=== PATIENT | male | born 1965 | race Caucasian/White ===

== ENCOUNTER 2017-01-23 14:25 | Inpatient (IN) | payer OTHER ==
[~2017-01-23] VITALS: Ht 180.3 cm; Wt 167.8 kg
--- NOTE | ~2017-01-23 | CT4 ---
[facility] A Service of [facility] & [facility] / [facility] RADIOLOGY TEXT RESULTS PATIENT: CATRACHITA JIM LOCATION: [facility] [id number] : [birth year] UNIT #: [id number] AGE: [address]: Mary Kate Johnson MD SEX: M ORDER DR: [id number] [address] [address] [id number] MR#: [id number] Acc #: [id number] NAME: CATRACHITA JIM : 1965 SEX: M STUDY DATE/TIME: 01/23/2017 15:33 UNIT: SED ROOM: STUDY DESCRIPTION: CT Abd and Pelv Wo Cont Attending Physician: Stu Solorzano M.D. Ordering Physician: Stu Solorzano M.D. Primary Care Physician: Omar Romo M.D. MEDICAL IMAGING REPORT This report is preliminary unless electronic signature is present. EXAM CT abdomen and pelvis without contrast HISTORY Left flank pain today. TECHNIQUE CT abdomen and pelvis was performed without contrast This CT exam was performed with one or more of the following radiation dose reduction techniques: automatic exposure control, adjustment of mA and/or kV according to patient size, and iterative reconstruction. FINDINGS CT abdomen: Left subcapsular perirenal hematoma measuring approximately 3 cm in maximal depth, and extending over a craniocaudal dimension of nearly 14 cm, with additional half superior, posterior and inferior perirenal blood on the left, extending to the level of the left hemidiaphragm and abutting the posterior margin of the spleen along its superior margin and extending into the left pelvis along the psoas muscle into its inferior margin. There is a lobulated probable perirenal hematoma along the posterior lower pole left kidney, with a likely associated subcapsular component. This measures close to 4 cm. There is a left adrenal myelolipoma measuring 1.3 cm. The liver, spleen, pancreas, right adrenal gland, and right kidney are unremarkable. No bowel dilatation. Normal appendix. Normal caliber abdominal aorta. CT pelvis: [id number] prostatic enlargement. Urinary bladder is normal. No free fluid. Moderately large left subcapsular renal hematoma measuring up to approximately 3 cm in depth with a lobulated subcapsular and perirenal hematoma component along the posterior margin of the lower pole left kidney measuring approximately 4 cm and additional more diffuse STS. [facility] A Service of [facility] & [facility] / [facility] RADIOLOGY TEXT RESULTS PATIENT: CATRACHITA JIM LOCATION: [facility] [id number] : [birth year] UNIT #: [id number] AGE: [address]: Mary Kate Johnson MD SEX: M ORDER DR: perirenal blood along the superior posterior and inferior left kidney extending from the left hemidiaphragm superiorly to the left upper pelvis inferiorly along anterior margin of the psoas muscle. Further characterization is limited without IV contrast. IMPRESSION 1. No urinary calculi or obstruction. 2. Left adrenal myelolipoma measures 1.3 cm. Dictated by... Luis Alcaraz M.D. THIS IS AN ELECTRONICALLY VERIFIED REPORT Luis Alcaraz M.D. at 01/23/2017 11:22 PM FELISA/jamari TD: 01/23/2017 18:00 JOB #: [id number] MEDICAL IMAGING REPORT Page 1 of 1
[~2017-01-23 14:25] MED LIST: ALAVERT10 MG PO; ALDACTONE25 MG PO; AMLODIPINE BESYL5 MG PO; CARVEDILOL25 MG PO; GLIPIZIDE10 MG PO; LISINOPRIL; LISINOPRIL20 MG PO; LORTAB 7.5-5001 TAB; METFORMIN PO; PHENERGAN25 MG PO
[2017-01-23 15:10] LABS: BASOPHIL# 0.1 X10e3 (0-0.3); BASOPHIL% 0.7 % (0-2.5); EOSINOPHIL# 0.1 X10e3 (0-0.7); EOSINOPHIL% 1.6 % (0.0-7.0); HEMATOCRIT 35.9 % (38.0-50.0); HEMOGLOBIN 12.5 gm/dL (13.0-16.0); LYMPHOCYTE# 0.4 X10e3 (1.0-3.5); LYMPHOCYTE% 4.7 % (17.0-45.0); MEAN CORPUSCULAR HEMOGLOBIN 34.2 PG (28-34); MEAN CORPUSCULAR HGB CONC 34.8 g/dL (30-36); MEAN PLATELET VOLUME 8.4 FL (6.5-11.5); MONOCYTE# 0.5 X10e3 (0-1.0); MONOCYTE% 6.2 % (3.0-12.0); NEUTROPHIL# 6.8 X10e3 (1.5-7.1); NEUTROPHIL% 86.8 % (40-75); PLATELET COUNT 229 X10e3 (140-420); RED BLOOD COUNT 3.66 X10e (3.90-5.60); RED CELL DISTRIBUTION WIDTH 13.7 % (11.0-15.5); WHITE BLOOD COUNT 7.8 X10e3 (4.0-10.5)
[2017-01-23 15:11] LABS: DIFF IND NO
[2017-01-23 15:18] LABS: CALCIUM SERUM 9.2 mg/dL (8.4-10.2); CREATININE SERUM 1.6 mg/dL (0.6-1.4); GLOM FILT RATE Estimated 49.5 mL/min (>60); POTASSIUM 3.5 mmol/L (3.5-5.1)
[2017-01-23 16:46] LABS: INR 1.1; PROTHROMBIN TIME (PATIENT) 11.9 SECONDS (9.5-12.4)
[2017-01-23 16:53] LABS: PARTIAL THROMBOPLASTIN TIME 28.8 SECONDS (25.6-38.1)
[2017-01-23 18:09] LABS: URINE SOURCE CLEAN CATCH
[2017-01-23 18:10] LABS: URINE APPEARANCE CLEAR; URINE BILIRUBIN NEG (NEG); URINE BLOOD 1+ (NEG); URINE COLOR YELLOW; URINE GLUCOSE NEG (NORM); URINE KETONE 1+ (NEG); URINE LEUKOCYTE ESTERASE NEG (NEG); URINE NITRATE NEG (NEG); URINE PROTEIN 2+ (NEG); URINE UROBILINOGEN 0.2 MG/DL (NORM)
[2017-01-23 18:17] LABS: CULTURE INDICATED? NO; MICRO INDICATED? YES; URINE BACTERIA NEG (NEG); URINE WBC 0-2 /[HPF] (0-5)
[2017-01-23] MEDS ORDERED: ATORVASTATIN CA10 MG PO (22:49)
[2017-01-23] MEDS ORDERED: ZYRTEC10 M1 PO (22:51)
[2017-01-23] MEDS ORDERED: 24 HOUR ALLER15.8 ML (22:57)
[2017-01-23] MEDS ORDERED: HYDRALAZINE HCL25 MG PO (23:02)
[2017-01-23] MEDS ORDERED: IMDUR-ER60 M1 PO (23:04)
[2017-01-23] MEDS ORDERED: NITROQUICK0.4 MG SL (23:09)
[2017-01-23] MEDS ORDERED: ALBUTEROL17 GM NEB (23:11)
[2017-01-23] MEDS ORDERED: ASPIRIN81 MG PO (23:22)
[2017-01-23] MEDS ORDERED: AMLODIPINE BESY10 MG PO (23:22)
[2017-01-23] MEDS ORDERED: GLIPIZIDE10 MG PO (23:23)
[2017-01-23] MEDS ORDERED: BUMETANIDE2 M1 PO (23:23)
[2017-01-23] MEDS ORDERED: MAGNESIUM400 M1 PO (23:25)
[2017-01-23] MEDS ORDERED: MULTI VITAMIN1 EACH PO (23:26)
[2017-01-23] MEDS ORDERED: METFORMIN HCL1000 M1 PO (23:26)
[2017-01-23] MEDS ORDERED: PIOGLITAZONE30 MG PO (23:36)
[2017-01-23] MEDS ORDERED: VITAMIN D250000 UNIT PO (23:37)
[2017-01-27] MEDS ORDERED: HYDROCODON-ACE1 EAC9 PO (16:01)
== END 2017-01-27 16:54 | disposition home or self-care (01) | DRG 698 ==
LOC: SED 14:25 → CEDOF 18:30 → SED 18:30 → C4C 22:15
PROVIDERS: Emergency Medicine
PROC: B24BYZZ Ultrasonography of Heart with Aorta using Other Contrast (ICD-10-PCS; principal; 2017-01-25)
DX: N28.89 Other specified disorders of kidney and ureter (principal); J96.21 Acute and chronic respiratory failure with hypoxia; I50.33 Acute on chronic diastolic (congestive) heart failure; D62 Acute posthemorrhagic anemia; E11.22 Type 2 diabetes mellitus with diabetic chronic kidney disease; Z68.43 Body mass index [BMI] 50.0-59.9, adult; I13.0 Hypertensive heart and chronic kidney disease with heart failure and stage 1 through stage 4 chronic kidney disease, or unspecified chronic kidney disease; N17.9 Acute kidney failure, unspecified; J44.9 Chronic obstructive pulmonary disease, unspecified; Z90.49 Acquired absence of other specified parts of digestive tract; N18.3 Chronic kidney disease, stage 3 (moderate); Z79.84 Long term (current) use of oral hypoglycemic drugs; F10.10 Alcohol abuse, uncomplicated; E78.5 Hyperlipidemia, unspecified; E66.01 Morbid (severe) obesity due to excess calories; G47.33 Obstructive sleep apnea (adult) (pediatric); Z79.82 Long term (current) use of aspirin
CPT/HCPCS: 36415; 71010; 74176; 80048; 81003; 82310; 82570; 82947; 83036; 83970; 84100; 84156; 84300; 85014; 85018; 85025; 85027; 85610; 85730; 86850; 86900; 86901; 86923; 87040; 89190; 93005; 93306; 94760; 94761; 96374; 96375; 97163; 97166; 99285; G8978-GP; G8979-GP; G8980-GP; G8987-GO; G8988-GO; G8989-GO; J1170; J1815; J1885; J1940; J2270; J2405; J3360